=== PATIENT | female | born 1980 | race Two or more races ===

== ENCOUNTER 2016-10-29 17:00 | Emergency (ER) | payer OTHER ==
--- NOTE | 2016-10-29 18:28 | RAD ---
EXAMINATION:CHEST - 2 VIEWS CLINICAL INDICATION: Fever and cough COMPARISON:none FINDINGS: The cardiomediastinal silhouette is within normal limits. There is no adenopathy identified. There is no pleural effusion. The lungs are clear. The osseous structures are unremarkable for age. IMPRESSION: Negative PA and lateral views of the chest. No acute cardiopulmonary process is identified.
== END 2016-10-29 19:19 | disposition home or self-care (01) ==
LOC: ED 17:00
DX: J09.X2 Influenza due to identified novel influenza A virus with other respiratory manifestations (principal); G91.9 Hydrocephalus, unspecified